=== PATIENT | male | born 1995 | race Caucasian/White ===

== ENCOUNTER 2016-08-11 02:52 | Emergency (ER) | payer OTHER ==
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
[2016-08-11 03:39] VITALS: BP 143/68; PULSE 100; RESP 16; TEMP 97.9; O2SAT 93
== END 2016-08-11 03:40 | disposition home or self-care (01) ==
DX: S00.81XA Abrasion of other part of head, initial encounter (principal); S40.811A Abrasion of right upper arm, initial encounter; Y04.0XXA Assault by unarmed brawl or fight, initial encounter; Y92.69 Other specified industrial and construction area as the place of occurrence of the external cause; Y99.0 Civilian activity done for income or pay; Y93.89 Activity, other specified